=== PATIENT | male | born 1980 | race Caucasian/White ===

== ENCOUNTER 2017-06-08 05:53 | Emergency (ER) | payer BC ==
[2017-06-08] MEDS ORDERED: Pantoprazole IV* 40 MG IV ONE (06:29)
[2017-06-08] MEDS ORDERED: NS 0.9% 1000 ML* 3,000 ML IV ONE (06:29)
[2017-06-08] MEDS ORDERED: HYDROmorphone* 1 MG/ML 1 ML SYR IV ONE (06:29)
[2017-06-08] MEDS ORDERED: Metoclopramide IV* 5 MG/ML 2 ML VIAL IV ONE (06:29)
[2017-06-08 06:47] LABS: Hematocrit 48 % (42-52); Hemoglobin 16.6 g/dl (14.0-18.0); Mean Corpuscular HGB Conc 34 g/dl (31-36); Mean Corpuscular Hemoglobin 31 pg (27-31); Mean Corpuscular Volume 90 fL (80-94); Mean Platelet Volume 9 um3 (7.4-10.4); Red Blood Count 5.33 10^6/ul (4.0-5.4); Red Cell Distribution Width 13 % (10.5-15); White Blood Count 8.5 10^3/ul (3.5-10.8)
[2017-06-08 06:50] LABS: Urine Bilirubin Negative (Negative); Urine Glucose Negative (Negative); Urine Nitrite Negative (Negative)
--- NOTE | 2017-06-08 06:54 | ED ---
Luis Colindres Rebecca, scribed for Josue Marie MD on 06/08/17 at 0623 . HPI Chest Pain - HPI Summary HPI Summary: Pt is a 36 y/o M who presents to ED c/o CP. Pain is in the lower sternal/ epigastric regions with radiation to the upper back and began yesterday morning , worsening last night at 2200. Pain waxes and wanes in intensity and is currently moderate, ranked 7/10. Sx aggravated by deep breaths, alleviated by nothing, unchanged by Pepcid, Pepto Bismol and Tums. Additionally c/o abdominal bloating, N/V and slight wheezing. Denies SOB, blood in stool. No PSHx on the abdomen. Last BM yesterday. K K - History of Current Complaint Chief Complaint: EDChestPainROMI Hx Obtained From: Patient Onset/Duration: Started Days Ago - Yesterday morning, Still Present, Worse Since - 2200 Time of Onset: 22:00 Current Severity: Moderate Pain Intensity: 7 Pain Scale Used: 0-10 Numeric Chest Pain Location: Lower Sternal Chest Pain Radiates To:: Epigastric Aggravating Factor(s): Deep Breaths Alleviating Factor(s): Nothing Associated Signs and Symptoms: Positive: Nausea, Vomiting, Wheezing - Allergy/Home Medications Allergies/Adverse Reactions: Allergies Allergy/AdvReac Type Severity Reaction Status Date / Time No Known Allergies Allergy Verified 06/24/16 09:28 PMH/Surg Hx/FS Hx/Imm Hx Endocrine/Hematology History: Denies: Hx Diabetes, Hx Systemic Lupus Erythematosus, Hx Thyroid Disease Cardiovascular History: Denies: Hx Congestive Heart Failure, Hx Hypertension Respiratory History: Denies: Hx Asthma GI History: Denies: Hx Ulcer Comment Only: Other GI Disorders - ENLARGED LYMPH NODES IN ABD AND GROIN History: Denies: Hx Dialysis, Hx Renal Disease Musculoskeletal History: Denies: Hx Rheumatoid Arthritis Psychiatric History: Reports: Hx Anxiety Denies: Hx Eating Disorder, Hx of Violent Episodes Against Others - Cancer History Cancer Type, Location and Year: NECK JUN 2012 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 Hx Chemotherapy: Yes Hx Radiation Therapy: Yes - Surgical History Surgery Procedure, Year, and Place: JUN 2012 SUBMANIDBULAR MASS WITH LYMPH NODE REMOVED RT NECK Infectious Disease History: No Infectious Disease History: Denies: Hx Clostridium Difficile, Hx Hepatitis, Hx Human Immunodeficiency Virus (HIV), Hx of Known/Suspected MRSA, Hx Shingles, Hx Tuberculosis, Hx Known/ Suspected VRE, Hx Known/Suspected VRSA, History Other Infectious Disease, Traveled Outside the [place] in Last 30 Days - Family History Known Family History: Negative: Hypertension - Social History Alcohol Use: Occasionally Substance Use Type: Reports: Marijuana Substance Use Comment - Amount & Last Used: 2 days ago Smoking Status (MU): Former Smoker Type: Smokeless Tobacco Amount Used/How Often: 1 CAN DAILY Length of Time of Smoking/Using Tobacco: 10 YRS Have You Smoked in the Last Year: No - chews tobacco Review of Systems Positive: Chest Pain - lower sternal/epigastric Positive: Other - Slight wheezing. Negative: Shortness Of Breath Positive: Vomiting, Nausea, Other - Abdominal bloating; NEGATIVE: blood in stool All Other Systems Reviewed And Are Negative: Yes Physical Exam - Summary Physical Exam Summary: The patient is well-nourished in no acute distress and in no acute pain. The skin is warm and dry and skin color reflects adequate perfusion. He has good skin turgor. HEENT: The head is normocephalic and atraumatic. The pupils are equal and reactive. The conjunctivae are clear and without drainage. Nares are patent and without drainage. Mouth reveals moist mucous membranes and the throat is without erythema and exudate. The external ears are intact. The ear canals are patent and without drainage. The tympanic membranes are intact. Neck is supple with full range of motion and non-tender. There are no carotid bruits. There is no neck vein distension. Respiratory: Chest is non-tender. Breath sounds are symmetrical and equal with some wheezing on the right side of the chest. Cardiovascular: Hear is regular rate and rhythm. There is no murmur or rub auscultated. There is no peripheral edema and pulses are symmetrical and equal. Abdomen: The abdomen is soft with marked tenderness in the RUQ and epigastric regions. He is not tender over the RLQ and LLQ. There are hyperactive bowel sounds heard in all four quadrants. Musculoskeletal: Extremities are non-tender with full range of motion. There is good capillary refill. There is no peripheral edema or calf tenderness elicited. Neurological: Patient is alert and oriented to person, place and time. The patient has symmetrical motor strength in all four extremities. Psychiatric: The patient has an appropriate affect and does not exhibit any anxiety or depression. Triage Information Reviewed: Yes Vital Signs On Initial Exam: Initial Vitals Temp Pulse Resp BP Pulse Ox 97.7 F 74 22 146/85 98 06/08/17 05:57 06/08/17 05:57 06/08/17 05:57 06/08/17 05:57 06/08/17 05:57 Vital Signs Reviewed: Yes - [place] Coma Scale Coma Scale Total: 15 Diagnostics - Vital Signs Vital Signs Temp Pulse Resp BP Pulse Ox 06/08/17 05:59 97.7 F 74 22 146/85 98 06/08/17 05:57 97.7 F 74 22 146/85 98 - Laboratory Lab Results: Lab Results 06/08/17 06/08/17 Range/Units 06:04 06:40 WBC 8.5 (3.5-10.8) 10^3/ul RBC 5.33 (4.0-5.4) 10^6/ul Hgb 16.6 (14.0-18.0) g/dl Hct 48 (42-52) % MCV 90 (80-94) fL MCH 31 (27-31) pg MCHC 34 (31-36) g/dl RDW 13 (10.5-15) % Plt Count 173 (150-450) 10^3/ul MPV 9 (7.4-10.4) um3 Neut % (Auto) 74.9 (38-83) % Lymph % (Auto) 17.4 L (25-47) % Duval % (Auto) 6.2 (1-9) % Eos % (Auto) 1.1 (0-6) % Baso % (Auto) 0.4 (0-2) % Absolute Neuts (auto) 6.4 (1.5-7.7) 10^3/ul Absolute Lymphs (auto) 1.5 (1.0-4.8) 10^3/ul Absolute Monos (auto) 0.5 (0-0.8) 10^3/ul Absolute Eos (auto) 0.1 (0-0.6) 10^3/ul Absolute Basos (auto) 0 (0-0.2) 10^3/ul Absolute Nucleated RBC 0.01 10^3/ul Nucleated RBC % 0.1 Urine Color Straw Urine Appearance Clear Urine pH 9.0 (5-9) Ur Specific [place] 1.008 L (1.010-1.030) Urine Protein Negative (Negative) Urine Ketones Negative (Negative) Urine Blood Negative (Negative) Urine Nitrate Negative (Negative) Urine Bilirubin Negative (Negative) Urine Urobilinogen Negative (Negative) Ur Leukocyte Esterase Negative (Negative) Urine Glucose Negative (Negative) Result Diagrams: 06/08/17 06:04 Lab Statement: Any lab studies that have been ordered have been reviewed, and results considered in the medical decision making process. - EKG 0551 Cardiac Rate: NL - 71 bpm EKG Rhythm: Sinus Rhythm EKG Interpretation: No STEMI, poor R wave progression, no non-specific ST changes Chest Pain Course/Dx - Course Assessment/Plan: Pt is a 36 y/o M who presents to ED c/o CP. Pain is in the lower sternal/epigastric regions with radiation to the upper back and began yesterday morning, worsening last night at 2200. Pain waxes and wanes in intensity and is currently moderate, ranked 7/10. Sx aggravated by deep breaths , alleviated by nothing, unchanged by Pepcid, Pepto Bismol and Tums. Additionally c/o abdominal bloating, N/V and slight wheezing. Denies SOB, blood in stool. No PSHx on the abdomen. Last BM yesterday. EKG reveals poor R wave progression with no STEMI. In the ED course, pt was given Dilaudid, Protonix, Reglan and fluid. Pt will be signed out to Dr. Lyman, pending dispo, awaiting CT abd/pel, CXR and US gallbladder. - Chest Pain Differential Diagnosis/HQI/PQRI: Acute OR, ACS, GI Disease, Other: - gb, pud, pancreatitis - Diagnoses Provider Diagnoses: Abdominal pain Discharge - Discharge Plan Condition: Stable Disposition: OTHER Discharge Disposition Comment: Pt will be signed out to Dr. Lyman, pending dispo, awaiting radiology Referrals: Roosevelt Han MD [Primary Care Provider] - The documentation as recorded by the Luis elise Rebecca accurately reflects the service I personally performed and the decisions made by nj, Josue Marie MD.
[2017-06-08 06:59] LABS: Albumin 4.9 g/dL (3.2-5.2); BUN/Creatinine Ratio 15.2 (8-20); C Reactive Protein 11.65 mg/L (< 5.00); Calcium 10.5 mg/dL (8.6-10.3); EGFR Non-African American 80.9 (>60); Globulin 2.5 g/dL (2-4); Potassium 3.5 mmol/L (3.5-5.0); Total Bilirubin 0.7 mg/dL (0.2-1.0); Total Protein 7.4 g/dL (6.4-8.9)
[2017-06-08 07:01] LABS: Troponin I 0.01 ng/mL (<0.04)
[2017-06-08] MEDS ORDERED: Iohexol 300* (CONTRAST) 10 ML SDV IV ONE (07:14)
--- NOTE | 2017-06-08 08:13 | RAD ---
HISTORY: Chest pain, wheezing COMPARISONS: None VIEWS: 4: Frontal dual-energy and lateral views of the chest. FINDINGS: CARDIOMEDIASTINAL SILHOUETTE: The cardiomediastinal silhouette is normal. DENNIS: The dennis are normal. PLEURA: The costophrenic angles are sharp. No pleural abnormalities are noted. LUNG PARENCHYMA: The lungs are clear. ABDOMEN: The upper abdomen is clear. There is no subphrenic gas. BONES AND SOFT TISSUES: No bone or soft tissue abnormalities are noted. OTHER: None. IMPRESSION: NO ACTIVE CARDIOPULMONARY DISEASE.
--- NOTE | 2017-06-08 08:14 | RAD ---
HISTORY: Right upper quadrant pain, cholelithiasis COMPARISONS: August 30, 2012 TECHNIQUE: Multiple transverse and longitudinal ultrasound images were obtained of the right upper quadrant of the abdomen using grayscale and color Doppler imaging. FINDINGS: LIVER: The liver is mildly echogenic and coarse in echotexture, with decreased acoustic transmission. The liver is otherwise normal in shape, size, and contour. There is normal hepatopedal flow of the portal vein on Doppler imaging. BILIARY TREE: There is no intrahepatic or extrahepatic biliary dilatation. The common duct measures 0.3 cm. GALLBLADDER: The gallbladder is well-visualized. There is no cholelithiasis, gallbladder wall thickening, pericholecystic fluid, or sonographic Hoang sign. PANCREAS: The head of the pancreas is unremarkable. The tail of the pancreas is not well visualized secondary to overlying bowel gas. RIGHT KIDNEY: The right kidney is normal in shape, size, contour, and echogenicity. There is no hydronephrosis or nephrolithiasis. The right kidney measures 11.5 x 4.9 x 6.2 cm. AORTA AND IVC: The aorta and IVC are unremarkable. FLUID: There are no pleural effusions. There is no free fluid within the hepatorenal recess. OTHER FINDINGS: None. IMPRESSION: MILDLY ECHOGENIC LIVER SUGGESTIVE FATTY INFILTRATION.
--- NOTE | 2017-06-08 08:55 | RAD ---
INDICATION: Diffuse upper abdominal pain, nausea, vomiting. History of Hodgkin's lymphoma. COMPARISON: August 30, 2012 CT and June 08, 2017 RIGHT upper quadrant ultrasound. TECHNIQUE: Multidetector CT images were obtained from the lung bases to the ischial tuberosities with 145 mL Omnipaque 300 IV and oral contrast. Multiplanar reformation. REPORT: Unremarkable visualized inferior thorax. Decreased density of the liver consistent with fatty infiltration. No focal hepatic lesions or biliary dilatation. No CT abnormality of the gallbladder, pancreas, spleen Negative for CT abnormality of the upper GI, small bowel, or retrocecal appendix. Mild colonic diverticulosis without findings of diverticulitis. Negative for ascites, free air, hernias. Normal adrenal glands. Unremarkable kidneys with symmetric nephrograms and pyelograms. Unremarkable ureters and urinary bladder. Symmetric seminal vesicles. Negative for retroperitoneal or mesenteric lymphadenopathy. Normal diameter abdominal aorta and iliac arteries. Physiologic distention of the IVC. Small Schmorl node endplate herniations at the visualized thoracic spine. Negative for suspicious focal osseous lesions. IMPRESSION: 1. Negative for lymphadenopathy or organomegaly. 2. Fatty infiltration of the liver. 3. Mild colonic diverticulosis without findings of diverticulitis.
[2017-06-08 12:27] VITALS: BP 131/73
--- NOTE | 2017-06-12 19:48 | ED ---
Maryanne Colindres Edward, scribed for Codey Lyman MD on 06/08/17 at 0736 . Progress - Progress Note Progress Note: Sign out form Dr. Marie at shift change. Patient more comfortable now. He has had NVD. Studies reviewed and discussed with patient. he would like to go home and rest. Zofran script. FU with PMD at [place]. - Results/Orders Results/Orders: GALLBLADDER US - MILDLY ECHOGENIC LIVER SUGGESTIVE FATTY INFILTRATION. CXR - No active cardiopulmonary disease ABD/PEL CT - 1. Negative for lymphadenopathy or organomegaly. 2. Fatty infiltration of the liver. 3. Mild colonic diverticulosis without findings of diverticulitis. Course/Dx - Course Course Of Treatment: 36 yr old male who is more comfortable after time, and meds. CT neg. GB sono not acute. He will go home on zofran, and clear liquids. He has been having a lot of diarreha per the patient - Diagnoses Provider Diagnoses: Abdominal pain, Gastroenteritis The documentation as recorded by the tobinibMaryanne valle Edward accurately reflects the service I personally performed and the decisions made by me, Codey Lyman MD.
== END 2017-06-08 12:24 | disposition home or self-care (01) ==
LOC: ED 05:53
DX: K52.9 Noninfective gastroenteritis and colitis, unspecified (principal); R10.9 Unspecified abdominal pain; R06.2 Wheezing; Z87.891 Personal history of nicotine dependence; R07.9 Chest pain, unspecified
CPT/HCPCS: 36415; 71020; 74177; 76705; 80053; 81003; 82150; 83605; 83690; 84484; 85025; 86140; 93005; 96374; 96375; 99282; J1170; J2765; Q9967

== ENCOUNTER 2018-06-22 13:35 | Emergency (ER) | payer BC ==
[2018-06-22 14:30] VITALS: BP 112/68
--- NOTE | 2018-06-22 15:06 | UC ---
Skin Complaint HPI - HPI Summary HPI Summary: Patient is a 38 y/o M c/o L hand pain. Pt RHD. Pain is described as acute initially but currently rated a 0/10, per comp. assessment. Pain is localized under his L ring finger nail. Nail was not impaled. Area was not cleaned. Pt is not immunocompromised. No analgesia taken Patient states that he works at the [employer] when he received a puncture wound from a nail. He states that his last tetanus shot was over 20 years ago. Pt's medications reviewed this visit - History of Current Complaint Chief Complaint: UCSkin Time Seen by Provider: 06/22/18 15:03 Stated Complaint: PUNCTURE WOUND TO FINGER Hx Obtained From: Patient Onset/Duration: Sudden Onset Skin Exposure Onset/Duration: Minutes Ago Onset Severity: Mild Current Severity: Mild Pain Intensity: 0 Pain Scale Used: 0-10 Numeric Location: Discrete - L ring finger Aggravating Factor(s): Nothing Alleviating Factor(s): Nothing Associated Signs & Symptoms: Negative: Fever, Chills - Allergy/Home Medications Allergies/Adverse Reactions: Allergies Allergy/AdvReac Type Severity Reaction Status Date / Time No Known Allergies Allergy Verified 06/22/18 14:21 Review of Systems Constitutional: Other - NEG: fever, chills Gastrointestinal: Other - NEG: abd pain All Other Systems Reviewed And Are Negative: Yes PMH/Surg Hx/FS Hx/Imm Hx Previously Healthy: Yes Endocrine History: Other Other Endocrine History: NEG: DM Cardiovascular History: Other Other Cardiovascular History: NEG: CAD, HTN Psychological History: Anxiety Other Cancer History: hodgkins Lymphoma - Surgical History Surgical History: Yes Surgery Procedure, Year, and Place: JUN 2012 SUBMANIDBULAR MASS WITH LYMPH NODE REMOVED RT NECK - Family History Known Family History: Positive: Other - non contributory Negative: Cardiac Disease, Hypertension, Diabetes - Social History Occupation: Employed Full-time Lives: With Family Alcohol Use: Rare Substance Use Type: Marijuana Smoking Status (MU): Light Every Day Tobacco Smoker Type: Smokeless Tobacco Amount Used/How Often: 1 CAN DAILY Length of Time of Smoking/Using Tobacco: 10 YRS Have You Smoked in the Last Year: No - chews tobacco - Immunization History Most Recent Influenza Vaccination: [facility] Most Recent Tetanus Shot: [facility] Most Recent Pneumonia Vaccination: NONE Physical Exam - Summary Physical Exam Summary: Vital Signs Reviewed: Yes A+Ox3, no distress Eyes: Conjunctiva Clear ENT: Hearing grossly normal neck: supple Respiratory: Positive: No respiratory distress, No accessory muscle use Cardiovascular: skin color reflect adequate perfusion 2+ radial, CBT <2 sec Musculoskeletal Exam: DIAS x 4 without difficulty + flex/ext wrist, left ring finger MCP, DIP, PIP without difficulty Neurological: Positive: Alert, ambulatory without difficulty Psychological: Positive: Normal Response To Family Skin: Positive: no rash, no ecchymosis, small abrasion tip of nail left ring finger - no matrix involvement. no drainage, non suturable pt with small (1mm) cut to nailbed Triage Information Reviewed: Yes Vital Signs: Initial Vital Signs Temp 97.8 F 06/22/18 14:24 Pulse 75 06/22/18 14:24 Resp 17 06/22/18 14:24 BP 112/68 06/22/18 14:24 Pulse Ox 98 06/22/18 14:24 Course/Dx - Course Course Of Treatment: Pt with puncture wound to left hand from nail at work. not impaled. Pt with small abraison. nail intact not near matrix. Pt not immunocompromised. Pt needs tetanus. wound soaked and cleansed. non suturable wound. reviewed s/s infection. reviewed return precautions. reviewed tdap with pt - aware pertussis included. pt comfortable and in agreement with plan - Diagnoses Provider Diagnoses: puncture wound. skin abraison. tetanus booster Discharge - Sign-Out/Discharge Documenting (check all that apply): Patient Departure - Patient will be discharged home All imaging exams completed and their final reports reviewed: No Studies - Discharge Plan Condition: Stable Disposition: HOME Patient Education Materials: Diphtheria/Pertussis/Tetanus Vaccine (By injection ), Puncture Wound (ED) Referrals: Roosevelt Han MD [Primary Care Provider] - 2 Days Additional Instructions: - You received a tetanus booster today. Your arm will likely be sore tomorrow. This is normal - Okay to alternate ibuprofen (Advil, Motrin) 600mg and Tylenol every 3 hours for pain. Take with food. - Keep your finger area clean and dry. okay to wash with warm, soapy water 2-3 times a day - Monitor for signs of infection - reddness, red streaking, drainage, odor, increased pain - okay to cover with thin layer of antibiotic ointment and bandaid 2 times a day - contact your doctor or return here with questions or concerns - Billing Disposition and Condition Condition: STABLE Disposition: Home - Attestation Statements Document Initiated by Vernaibleonard: Yes Documenting Scribe: Prieto Crooks Provider For Whom César is Documenting (Include Credential): iMrella Hurtado MD. Scribe Attestation: Prieto Colindres, scribed for Mirella Hurtado MD. on 06/22/18 at 1520. Scribe Documentation Reviewed: Yes Provider Attestation: The documentation as recorded by the Prieto elise accurately reflects the service I personally performed and the decisions made by me, Mirella Hurtado MD.
[2018-06-22] MEDS ORDERED: Tetan/Diph/Pertus SYR(Tdap)* 0.5 ML SYR(BOOSTRIX) use SYR IM ONE (15:08)
== END 2018-06-22 15:38 | disposition home or self-care (01) ==
LOC: UCEAST 13:35
DX: S61.432A Puncture wound without foreign body of left hand, initial encounter (principal); S60.415A Abrasion of left ring finger, initial encounter; W45.0XXA Nail entering through skin, initial encounter; Y93.9 Activity, unspecified; Y92.89 Other specified places as the place of occurrence of the external cause; Y99.0 Civilian activity done for income or pay; Z23 Encounter for immunization; Z85.71 Personal history of Hodgkin lymphoma; F17.220 Nicotine dependence, chewing tobacco, uncomplicated
CPT/HCPCS: 90471; 90715; 99211; G0463

== ENCOUNTER 2020-05-17 10:11 | Inpatient (IN) ==
[2020-05-17 10:42] LABS: ABS Eosinophils 0.1 10^3/ul (0-0.6); ABS Lymphocytes 1.6 10^3/ul (1.0-4.8); ABS Monocytes 0.6 10^3/ul (0-0.8); ABS Neutrophils 7.1 10^3/ul (1.5-7.7); Eosinophil % 1.1 %; Hematocrit 44 % (42-52); Hemoglobin 15.7 g/dL (14.0-18.0); Lymphocyte % 17.2 %; Mean Corpuscular HGB Conc 36 g/dL (31-36); Mean Corpuscular Hemoglobin 32 pg (27-31); Mean Corpuscular Volume 89 fL (80-94); Mean Platelet Volume 8.2 fL (7.4-10.4); Nucleated Red Blood Cells % 0.1; Platelet Count 187 10^3/uL (150-450); Red Blood Count 4.98 10^6 /uL (4.18-5.48); Red Cell Distribution Width 13 % (10-15); White Blood Count 9.4 10^3/uL (3.5-10.8)
[2020-05-17 11:08] LABS: Albumin 4.7 g/dL (3.2-5.2); BUN/Creatinine Ratio 12.4 (8-20); Calcium 9.4 mg/dL (8.6-10.3); EGFR African American 105.4 (>60); EGFR Non-African American 87.1 (>60); Globulin 2.3 g/dL (2-4); Potassium 3.3 mmol/L (3.5-5.0); Total Bilirubin 0.9 mg/dL (0.2-1.0)
[2020-05-17 12:02] LABS: Acetaminophen < 15 mcg/mL; Alcohol, S < 10 mg/dL (<10); Salicylate < 2.50 mg/dL (<30)
[2020-05-17 12:07] LABS: TSH Ultra Thyroid Stim Horm 4.18 mcIU/mL (0.34-5.60)
[2020-05-17 13:06] LABS: Urine Appearance Turbid; Urine Bilirubin Negative (Negative); Urine Blood Negative (Negative); Urine Color Yellow; Urine Glucose Negative (Negative); Urine Ketones Negative (Negative); Urine Nitrite Negative (Negative); Urine Protein Negative (Negative); Urine Specific Gravity 1.021 (1.010-1.030); Urine Urobilinogen Negative (Negative)
[2020-05-17 13:18] LABS: Urine Benzodiazepine Screen None Detected (None Detect); Urine Cannabinoids Screen Presumptive Positive (None Detect); Urine Opiates Screen None Detected (None Detect)
[2020-05-17] MEDS ORDERED: LORazepam 2 mg VIAL 1 ml IV PUSH ONE (13:34)
[2020-05-17] MEDS ORDERED: Lorazepam PYXIS KEY PRN (13:34)
[2020-05-17] MEDS ORDERED: Al Hydrox/Mg Hydrox/Simet LIQ 30 ML UDC PO PRN (14:10)
[2020-05-17] MEDS: Nicotine GUM 4MG FRUIT FLAVOR PO PRN ×2 (18:48→21:56)
[2020-05-18] MEDS: Nicotine GUM 4MG FRUIT FLAVOR PO PRN ×4 (00:47→11:49)
[2020-05-18 08:37] VITALS: BP 115/66
[2020-05-18] MEDS ORDERED: Vitamin THERAPEUTIC TAB PO SCH (09:00)
== END 2020-05-18 14:00 | disposition home or self-care (01) | DRG 776 ==
LOC: ED 10:11 → BSU 14:10 → ED 16:07
PROVIDERS: ADMIT Psychiatry & Neurology Psychiatry; ATTEND Psychiatry & Neurology Psychiatry

== ENCOUNTER 2021-02-06 11:05 | Inpatient (IN) ==
[2021-02-06 12:07] LABS: ABS Eosinophils 0.2 10^3/ul (0-0.6); ABS Lymphocytes 1.5 10^3/ul (1.0-4.8); ABS Monocytes 0.3 10^3/ul (0-0.8); ABS Neutrophils 4.1 10^3/ul (1.5-7.7); Eosinophil % 3.4 %; Hematocrit 46 % (42-52); Hemoglobin 16.2 g/dL (14.0-18.0); Lymphocyte % 24.1 %; Mean Corpuscular HGB Conc 35 g/dL (31-36); Mean Corpuscular Hemoglobin 31 pg (27-31); Mean Corpuscular Volume 90 fL (80-94); Mean Platelet Volume 8.7 fL (7.4-10.4); Platelet Count 187 10^3/uL (150-450); Red Blood Count 5.18 10^6 /uL (4.18-5.48); Red Cell Distribution Width 13 % (10-15); White Blood Count 6.2 10^3/uL (3.5-10.8)
[2021-02-06 12:18] LABS: Urine Appearance Cloudy; Urine Bilirubin Negative (Negative); Urine Blood Negative (Negative); Urine Color Yellow; Urine Glucose Negative (Negative); Urine Ketones Negative (Negative); Urine Nitrite Negative (Negative); Urine Protein Negative (Negative); Urine Specific Gravity 1.026 (1.002-1.030); Urine Urobilinogen Negative (Negative)
[2021-02-06 12:24] LABS: ALT 19 U/L (7-52); AST 15 U/L (13-39); Albumin 4.5 g/dL (3.2-5.2); Albumin/Globulin Ratio 2.1 (1-3); Alkaline Phosphatase 78 U/L (34-104); Anion Gap 6 mmol/L (2-11); Blood Urea Nitrogen 14 mg/dL (6-24); CO2 Carbon Dioxide 27 mmol/L (22-32); Calcium 9.3 mg/dL (8.6-10.3); Chloride 106 mmol/L (101-111); EGFR African American 94.6 (>60); EGFR Non-African American 78.2 (>60); Globulin 2.1 g/dL (2-4); Glucose 93 mg/dL (70-100); Sodium 139 mmol/L (135-145); Total Protein 6.6 g/dL (6.4-8.9)
[2021-02-06 12:31] LABS: Acetaminophen < 15 mcg/mL; Alcohol, S < 10 mg/dL (<10); Salicylate < 2.50 mg/dL (<30)
[2021-02-06 12:42] LABS: TSH Ultra Thyroid Stim Horm 1.15 mcIU/mL (0.34-5.60)
[2021-02-06 12:43] LABS: Urine Benzodiazepine Screen None Detected (None Detect); Urine Cannabinoids Screen Presumptive Positive (None Detect); Urine Opiates Screen None Detected (None Detect)
[2021-02-06] MEDS: Nicotine GUM 4MG FRUIT FLAVOR PO PRN ×3 (16:07→20:48)
[2021-02-07] MEDS: Nicotine GUM 4MG FRUIT FLAVOR PO PRN ×6 (08:13→19:59)
[2021-02-07] MEDS: Nicotine PATCH 14 MG/24 HR PATCH TRANSDERM SCH (08:13)
[2021-02-08 08:03] VITALS: BP 114/69
[2021-02-08] MEDS: Nicotine PATCH 14 MG/24 HR PATCH TRANSDERM SCH (08:47)
[2021-02-08] MEDS: Nicotine GUM 4MG FRUIT FLAVOR PO PRN ×2 (08:48→11:01)
== END 2021-02-08 13:55 | disposition home or self-care (01) | DRG 776 ==
LOC: ED 11:05 → BSU 14:26
PROVIDERS: ADMIT Psychiatry & Neurology Psychiatry; ATTEND Psychiatry & Neurology Psychiatry